=== PATIENT | male | born 1950 | race African-American/Black ===

== ENCOUNTER → 2016-08-19 | Outpatient (CLI) | payer OTHER ==
[~2016-08-19] MED LIST: ACYCLOVIR 400400 MG PO; ALLOPURINOL 10100 M1 PO; ASPERDRINK81 MG; CLEOCIN HCL300 MG PO; FLOMAX0.4 MG PO; IBUPROFEN 800800 MG PO; INDOMETHACIN 2525 MG PO; LEVAQUIN 500 M500 M3 PO; NAPROSYN500 MG PO; NORCO 5-325 TA1 EACH PO; NORFLEX100 MG PO; PREDNISONE 20 M20 MG PO; PREDNISONE50 MG PO
--- NOTE | ~2016-08-19 | EEG ---
[facility] [place] [address] ELECTROENCEPHALOGRAM Name: SUSIE PRINCE Room #: [facility] M.R.#: [id number] Admission: 08/19/16 Attend Phys: Richie Coello MD Discharge: Date of : 46 Report #: [id number] THIS REPORT FOR: //name// CC: Russ Coello DATE OF SERVICE: 08/19/2016 This patient is being evaluated for an episode of syncope. EEG was done by placing the electrodes by standard 10-20 system of electrode placement. Both referential and sequential montages were used for recording. Background activity in this patient's EEG is about 11 Hz and 50 microvolts. This is a symmetrical activity. The patient went to sleep, and that is associated with bilaterally symmetrical sleep spindle and vertex sharp waves. Throughout the record, no active epileptiform activity was noticed. IMPRESSION: This patient's EEG is within normal limits. Thank you very much for this referral. By: [id number] Richie Coello MD /nt
[2016-08-19 09:37] LABS: HEMATOCRIT 41.8 % (42.0-52.0); HEMOGLOBIN 13.9 gm/dL (14.0-18.0); MCH 29.6 pg (26.0-34.0); MCHC 33.4 g/dL (28.0-37.0); MCV 88.8 fL (80.0-100.0); RDW 14.4 % (10.5-14.5); WBC 4.8 thou/uL (4.0-11.0)
[2016-08-19 09:42] LABS: MANUAL DIFF YES
[2016-08-19 09:57] LABS: ALBUMIN 3.7 g/dL (3.4-5.0); POTASSIUM 3.9 mmol/L (3.5-5.1); TOTAL BILIRUBIN 0.6 mg/dL (<0.1-1.0)
[2016-08-19 10:27] LABS: TSH 1.647 uIU/mL (0.358-3.740)
[2016-08-19 11:07] LABS: ABSOLUTE NEUTROPHILS 1.3 thou/uL (1.4-8.2); PLATELET COUNT 146 thou/uL (150-400); PLATELET ESTIMATE NORMAL; TOTAL CELL COUNT 100
== END ==
LOC: MRI 07:33
PROVIDERS: Psychiatry & Neurology Neuromuscular Medicine
DX: R55 Syncope and collapse (principal)

== ENCOUNTER → 2016-09-03 | Outpatient (CLI) | payer OTHER | LOC: ULTRA 02:31 | DX: I65.23 Occlusion and stenosis of bilateral carotid arteries (principal) ==